=== PATIENT | male | born 1965 | race Caucasian/White ===

== ENCOUNTER 2024-01-13 20:42 | Emergency (ER) | payer SELFPAY ==
[2024-01-13 20:43] VITALS: BMI 36.6
[2024-01-13 21:03] VITALS: BP 165/94
[2024-01-13 21:13] LABS: % Basophils 0.7 % (0-2); % Eosinophils 1.9 % (0-6); % Immature Granulocytes 0.3 % (0-0.5); % Lymphocytes 19.4 % (20.5-51.1); % Monocytes 8.8 % (1.7-9.3); % Neutrophils 68.9 % (42.2-75.2); Absolute Eosinophils 0.1 10^3/uL (0-0.7); Absolute Lymphocytes 1.1 10^3/uL (1.2-3.4); Absolute Monocytes 0.5 10^3/uL (0.1-0.6); Hematocrit 43.4 % (39.0-52.0); Hemoglobin 15.2 g/dL (13.0-18.0); Mean Corpuscular Hgb 32.5 pg (27.0-31.0); Mean Corpuscular Volume 92.9 fL (80.0-94.0); Mean Platelet Volume 9.5 fL (7.4-10.4); Nucleated Red Blood Cells % 0 % (-); Platelet Count 185 10^3/uL (130-400); Red Blood Cell Count 4.67 10^6/uL (4.70-6.10); Red Cell Dist. Width 11.9 % (11.5-14.5); White Blood Cell Count 5.8 10^3/uL (4.8-10.8)
[2024-01-13 21:25] LABS: Amphetamines Negative (Negative); Barbiturates Negative (Negative); Benzodiazepines Negative (Negative); Buprenorphine Negative (Negative); Cocaine Negative (Negative); Marijuana Negative (Negative); Methadone Negative (Negative); Methamphetamines Negative (Negative); Opiates Negative (Negative); Phencyclidine Negative (Negative); Tricyclic Antidepressants Positive (Negative)
[2024-01-13 21:25] LABS: ALT (SGPT) 67 U/L (0-50); AST (SGOT) 50 U/L (17-59); Alkaline Phosphatase 56 U/L (38-126); Blood Urea Nitrogen 20 mg/dl (9-20); Calcium 8.7 mg/dl (8.4-10.2); Carbon Dioxide 24 mmol/L (22-30); Chloride 98 mmol/L (98-107); Estimated Creatinine Clearance 121 ml/min; Glucose 202 mg/dl (70-99); Sodium 132 mmol/L (135-145); Total Bilirubin 1.4 mg/dl (0.2-1.3); Total Protein 6.4 g/dl (6.3-8.2); eGFR > 60.00
[2024-01-13 21:26] LABS: Alcohol None Detected
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
[2024-01-14 03:20] VITALS: BP 128/93
== END 2024-01-14 04:37 ==
LOC: EMR 20:42
PROVIDERS: Physician Assistant Medical; EMERGENCY PHYSICIAN Emergency Medicine; FAMILY PHYSICIAN Family Medicine
DX: F30.9 Manic episode, unspecified (principal); K21.9 Gastro-esophageal reflux disease without esophagitis; Z65.3 Problems related to other legal circumstances
CPT/HCPCS: 99283; 80053; 80306; 82077; 85025

== ENCOUNTER → 2024-07-10 13:04 | Outpatient (REF) | payer OTHER, SELFPAY | LOC: EMG 13:04 | PROVIDERS: ATTENDING PHYSICIAN Specialist; FAMILY PHYSICIAN Family Medicine | DX: M75.42 Impingement syndrome of left shoulder (principal); M25.512 Pain in left shoulder; M25.511 Pain in right shoulder; R20.0 Anesthesia of skin | CPT/HCPCS: 95886; 95911 ==

== ENCOUNTER 2024-09-27 19:26 | Emergency (ER) | payer OTHER, SELFPAY ==
[2024-09-27 19:30] VITALS: BP 149/82
[2024-09-27 20:19] VITALS: BMI 34.0
[2024-09-27 20:23] VITALS: BP 144/78
[2024-09-27 20:47] LABS: Hematocrit 40.1 % (39.0-52.0); Hemoglobin 14.3 g/dL (13.0-18.0); Mean Corp Hgb Conc. 35.7 g/dL (33.0-37.0); Mean Corpuscular Volume 86.1 fL (80.0-94.0); Nucleated Red Blood Cells % 0 % (-); Platelet Count 152 10^3/uL (130-400); Red Cell Dist. Width 12.3 % (11.5-14.5)
[2024-09-27 21:10] LABS: ALT (SGPT) 18 U/L (0-50); AST (SGOT) 16 U/L (17-59); Albumin 4.1 g/dl (3.5-5.0); Alkaline Phosphatase 57 U/L (38-126); Blood Urea Nitrogen 20 mg/dl (9-20); Calcium 9.4 mg/dl (8.4-10.2); Carbon Dioxide 27 mmol/L (22-30); Chloride 106 mmol/L (98-107); Estimated Creatinine Clearance 98 ml/min; Glucose 97 mg/dl (70-99); Potassium 4.5 mmol/L (3.5-5.1); Sodium 137 mmol/L (135-145); Total Protein 6.4 g/dl (6.3-8.2); eGFR > 60.00
[2024-09-27 21:27] LABS: Urine Character Clear (Clear)
[2024-09-27 21:35] VITALS: BP 158/101
[2024-09-27 21:45] LABS: D-Dimer < 0.27 ug/mlFEU (0.00-0.50)
[2024-09-27 21:50] LABS: Troponin I < 0.012 ng/ml
[2024-09-27 21:52] LABS: Urine Red Blood Cell 0-2 /HPF (0-2); Urine Squamous Cell 26-30 /LPF (Few); Urine White Cell 0-2 /HPF (0-5)
[2024-09-27 22:30] VITALS: BP 127/72
--- NOTE | 2024-09-27 22:47 | ED.GENMED ---
History of Present Illness
General
Chief Complaint: Dizziness
Time Seen by Provider: 09/27/24 20:08
History of Present Illness
History of Present Illness:
59-year-old male with history of bipolar disorder, hypertension presenting to the emergency department for concern of a syncopal episode. Patient reports 2 days ago, after traveling home from [place], he was walking in the kitchen and
suddenly dropped to the ground. Reports that he may have felt slightly lightheaded for about 1 to seconds prior to the incident, otherwise had no significant prodromal symptoms. He also notes that he does not think that he fully passed out. He
was able to almost immediately get up and walk. was in the kitchen, however her back was turned to him. No report of any diffuse body shaking or postictal type of period. Patient does note that he is on a lot of sedating medications
including gabapentin and Klonopin, however has been on these medications for some time. Notes some generalized fatigue with the medications. Denies any known cardiac history. Denies any present chest pain or difficulty breathing. He talked to
his primary care doctor today. Denies any fever or recent illness. Denies additional acute medical complaints
Past History
Social History
Tobacco: Non-smoker
Alcohol: Occasional
Drug: None
Personal:
Living: with family
Employment: Employed
Phy Exam
Physical Exam
Physical Exam:
General: Well-appearing, no clinical signs of dehydration, nontoxic and in no acute distress
HEENT: protecting airway
Neck: appears supple, no midline tenderness
CV: Normal heart rate, regular rhythm
Resp: No accessory muscle use, no increased work of breathing, lungs clear to auscultation bilaterally
Abd: Soft and non-distended, no tenderness to palpation
Extremities: No deformities, no swelling
Neuro: alert, no focal neurologic deficit
: deferred
Rectal: deferred
Psych: Normal affect
Skin: Intact
Course
Orders/Labs/Results
Orders:
Orders
08/07/25 19:33
Electrocardiogram (*1) Urgent
Reason for Study: Syncope
EKG- Treatment ONCE
09/27/24 20:34
CMP [Comprehensive Metabolic Panel] Urgent
Complete Blood Count/With Diff Urgent
09/27/24 21:09
CT Head W/o Iv Contrast Urgent
Comment:
Reason For Exam: syncope and collapse
09/27/24 21:16
D-Dimer Urgent
Troponin I Urgent
Urinalysis Reflex To Culture Urgent
Date Specimen was Collected: 09/27/24
Time Specimen was Collected: 21:15
Urine Microscopic Reflex Cult Urgent
Abnormal Lab Results
09/27/24 09/27/24
20:34 21:16
WBC 4.1 L 10^3/uL
(4.8-10.8)
RBC 4.66 L 10^6/uL
(4.70-6.10)
Monocytes % 13.3 H %
(1.7-9.3)
Total Bilirubin 1.4 H mg/dl
(0.2-1.3)
AST 16 L U/L
(17-59)
Urine Urobilinogen 2+ A
(Neg - 1+)
Urine Bacteria (Reflex) Few A
(Negative)
Urine Albumin (Reflex) 1+ A
(Neg - Trace)
09/27/24 20:34
09/27/24 20:34
Vital Signs
Initial and Last Documented VS:
Initial Vital Signs
Temp Pulse Resp BP Pulse Ox
98 F 59 16 149/82 96
09/27/24 19:30 09/27/24 19:30 09/27/24 19:30 09/27/24 19:30 09/27/24 19:30
Last Documented Vital Signs
Temp Pulse Resp BP Pulse Ox
98.1 F 58 17 127/72 98
09/27/24 20:23 09/27/24 22:30 09/27/24 22:30 09/27/24 22:30 09/27/24 22:30
MDM/Problems Addressed
MDM/Problems Addressed:
59-year-old male with history of bipolar disorder and hypertension presenting for a syncopal episode. Vital signs on arrival are significant for mild hypertension, however resolved without intervention.
On exam patient is resting comfortably, no acute distress or discomfort. Notes that he feels generally fatigued, however otherwise asymptomatic. Syncopal episode was 2 days ago. Patient symptoms are concerning in the sense that he denies any
significant prodromal symptoms. However, denies any full loss of consciousness, so unclear if he had a complete syncopal episode. No report of any shaking, without concern for seizure, again no postictal period or period of confusion. EKG
obtained on arrival, nonischemic, no arrhythmia. Sudden arrhythmia and collapse is a consideration, however lower suspicion. Does note recent travel, had about a 7-hour car ride prior to onset of symptoms. No lower extremity edema. No PE risk
factors. Will screen with D-dimer. Will also send troponin. Will obtain electrolyte panel to ensure no electrolyte derangement. Will check blood counts. Unclear if patient struck his head. Will screen with CT brain imaging.
22:45- CT head without acute abnormality. Labs are unremarkable. Negative dimer and troponin. At this time again unclear etiology of patient's preceding event. Remains hemodynamically stable and feel stable for discharge, however did explain
that patient should follow-up closely with a director medical surgical to completely rule out acute cardiac event such as an arrhythmia. Strict return precautions were communicated to patient who verbalized understanding
*Pulse Oximetry
SaO2: 98
Oxygen Mode of Delivery: Room air
Patient hypoxic: no
*EKG
Interpreted by ED Provider?: Yes
EKG Intrepretation Date: 09/27/24
EKG Intrepretation Time: 22:56
Interpretation: normal
Comparison EKG: no changes (06/11/21)
Heart Rate: 62
Rate: normal
Rhythm: sinus
[place]: normal axis
Interval: normal interval
QRS Pattern: normal QRS
Ischemia: no ischemia
*Critical Care Note
Total Time (30-74mins, 75-104mins- exclusive of procedures): Not Applicable
ED Attending Note
-
Portions of this chart may have been created with voice recognition software.� Occasional wrong word or��sound alike� substitutions may have occurred due to the inherent limitations of voice recognition software.
Discharge Plan
Departure
Patient Disposition: Home (Routine Discharge)
Date of Disposition: 09/27/24
Time of Disposition: 22:39
Patient with high blood pressure during this ER visit?: No
Condition: Good
Discharge Problem:
Syncope and collapse
Instructions: Syncope (fainting) - Discharge instructions
Referrals:
Juan Antonio Sanchez MD [Active, Cardiology]
Jo-Ann Nj MD [Family Provider, Family Practice]
Activity Restrictions/Additional Instructions:
You were seen in the emergency department for episode of syncope, or passing out
You were found to have reassuring vital signs, laboratory analysis, CT imaging of your brain, and EKG. However, we recommend that you follow-up with a director medical surgical for additional testing.
Please follow-up closely with your primary care physician.
Return to the emergency department for any worsening of your symptoms, or any development of chest pain, difficulty breathing, abdominal pain with persistent vomiting and inability to tolerate food or liquid by mouth (concern for dehydration),
weakness, headache or confusion, fever greater than 100.4, or any additional symptoms that are concerning to you.
Thank you for choosing [facility].
Interventions
Interventions:
*Risk Screen - Suicide Last Done: 09/27/24 19:35
*General Assessment Last Done: 09/27/24 20:24
*Neglect/Abuse Screening Last Done: 09/27/24 19:35
*ED- Fall Risk Assessment Last Done: 09/27/24 20:24
*ED COVID-19 Vaccine History Last Done: 09/27/24 20:24
ED- Neurological Assessment Last Done: 09/27/24 20:36
ED- Cardiac Assessment Last Done: 09/27/24 20:36
ED Swallowing Screen Last Done: 09/27/24 21:16
Discharge Date and Time
Print Language: MAORI
== END 2024-09-27 22:59 | disposition home or self-care (01) ==
LOC: EMR 19:26
PROVIDERS: EMERGENCY PHYSICIAN Student in an Organized Health Care Education/Training Program; FAMILY PHYSICIAN Family Medicine
DX: R55 Syncope and collapse (principal); F31.9 Bipolar disorder, unspecified; I10 Essential (primary) hypertension; Z79.899 Other long term (current) drug therapy
CPT/HCPCS: 99285; 70450; 80053; 81003; 81015; 84484; 85025; 85379; 93005

== ENCOUNTER 2024-12-25 01:34 | Emergency (ER) | payer OTHER, SELFPAY ==
[2024-12-25 01:35] VITALS: BP 130/80
--- NOTE | 2024-12-25 02:04 | ED.GENMED ---
History of Present Illness
General
Chief Complaint: Post Operative Problem(s)
Source: patient
Time Seen by Provider: 12/25/24 01:53
History of Present Illness
History of Present Illness:
59-year-old male presents to the emergency room for evaluation after a surgical incision opened up. Patient is postop day 10 after having ulnar nerve release surgery of his left arm. The incision in his left elbow evidently 'opened up' when he
rolled over in bed. The sutures had been removed about 4 days ago. Surgery was performed by Dr. Jimenez. Patient is right-hand dominant. No fever, chills or any other systemic complaints.
Past History
Social History
Tobacco: Non-smoker
Alcohol: Occasional
Drug: None
Personal:
Living: with family
Employment: Employed
Phy Exam
Physical Exam
Physical Exam:
General: Awake, Alert, Oriented X3. No acute distress.
Vitals: unremarkable
Head: Atraumatic
Eyes: Pupils equal, EOMI
Throat: Airway intact, no exudates
Neck: Trachea midline
Neuro: Nonfocal
Skin: Warm, dry, no rash
Extremities: pulses equal b/l, no edema. Approximately 1-1/2 2 cm wound noted on the ulnar aspect of the upper arm near the elbow. Wound edges are clear. No purulent discharge.
Course
Orders/Labs/Results
Orders:
Orders
12/25/24 02:16
Cephalexin Monohydrate [Keflex] 500 mg PO NOW STA
Vital Signs
Initial and Last Documented VS:
Initial Vital Signs
Temp Pulse Resp BP Pulse Ox
97.4 F 58 20 130/80 98
12/25/24 01:35 12/25/24 01:35 12/25/24 01:35 12/25/24 01:35 12/25/24 01:35
Last Documented Vital Signs
Temp Pulse Resp BP Pulse Ox
97.4 F 58 20 130/80 98
12/25/24 01:35 12/25/24 01:35 12/25/24 01:35 12/25/24 01:35 12/25/24 02:05
MDM/Problems Addressed
Differential Diagnosis Includes:
Wound infection, ride mechanic wound dehiscence
MDM/Problems Addressed:
Given the incision is 10 days old I do not believe it is amenable to primary closure here in the emergency room. Will approximate wound edges with Steri-Strips and have him follow-up with Dr. Jimenez in the office. Will cover with Keflex for 5
days.
*Pulse Oximetry
SaO2: 98
Oxygen Mode of Delivery: Room air
Patient hypoxic: no
*Critical Care Note
Total Time (30-74mins, 75-104mins- exclusive of procedures): Not Applicable
ED Attending Note
-
Portions of this chart may have been created with voice recognition software.� Occasional wrong word or��sound alike� substitutions may have occurred due to the inherent limitations of voice recognition software.
Discharge Plan
Departure
Patient Disposition: Home (Routine Discharge)
Date of Disposition: 12/25/24
Time of Disposition: 02:16
Patient with high blood pressure during this ER visit?: No
Condition: Good
Discharge Problem:
Dehiscence of wound
Instructions: Wound Care (DC), BLOOD PRESSURE
Prescriptions:
New
cephalexin 500 mg capsule
500 mg PO QID Qty: 20 0RF
No Action
gabapentin 600 mg Tablet
1,200 mg PO BID
clonazepam [Klonopin] 0.5 mg Tablet
1.5 mg PO BID
pantoprazole 40 mg Tablet,Delayed Release (Dr/Ec)
40 mg PO BID
diphenhydramine HCl [Benadryl] 25 mg Capsule
20 mg PO HS
vitamin B complex [Vitamin B-50 Complex] Tablet
1 tab PO DAILY
lamotrigine 100 mg Tablet
100 mg PO BID
escitalopram oxalate [Lexapro] 10 mg Tablet
10 mg PO DAILY
Referrals:
Yakov Jimenez MD [Active, Orthopedics]
Interventions
Interventions:
*Risk Screen - Suicide Last Done: 12/25/24 01:35
*General Assessment Last Done: 12/25/24 01:40
*Neglect/Abuse Screening Last Done: 12/25/24 01:35
*ED- Fall Risk Assessment Last Done: 12/25/24 01:40
*ED COVID-19 Vaccine History Last Done: 12/25/24 01:40
*ED Influenza Vaccine History Last Done: 12/25/24 01:40
*Nursing Disposition Last Done: 12/25/24 02:35
ED-Skin Assessment Last Done: 12/25/24 01:40
Discharge Date and Time
Discharge Date/Time: 12/25/24 02:35
Print Language: SETSWANA
[2024-12-25] MEDS: KEFLEX 500 MG PO (02:32)
== END 2024-12-25 02:35 | disposition home or self-care (01) ==
LOC: EMR 01:34
PROVIDERS: EMERGENCY PHYSICIAN Emergency Medicine; FAMILY PHYSICIAN Family Medicine
DX: T81.31XA Disruption of external operation (surgical) wound, not elsewhere classified, initial encounter (principal)
CPT/HCPCS: 99283

== ENCOUNTER 2024-12-30 09:22 | Emergency (ER) | payer OTHER, SELFPAY ==
[2024-12-30 09:27] VITALS: BP 171/98
--- NOTE | 2024-12-30 10:09 | ED.GENMED ---
History of Present Illness
General
Chief Complaint: Swelling
Time Seen by Provider: 12/30/24 09:46
History of Present Illness
History of Present Illness:
59-year-old male presents to the emergency department for evaluation of left arm swelling that began upon awakening this morning. He is approximately 2 weeks status post ulnar nerve release surgery performed by Dr. Jimenez with [facility] orthopedics.
He did have a postop complication with wound dehiscence 5 days ago and is currently using Steri-Strips for definitive closure. He had mild swelling intermittently after the surgery but not as significant as this. He reports stiffness of the left
hand and moderate pain and paresthesias of the left forearm and hand as well. Denies any new trauma. No fevers or chills
Past History
Social History
Tobacco: Non-smoker
Alcohol: Occasional
Drug: None
Personal:
Living: with family
Employment: Employed
Review of Systems
Review of Systems
Allergies reviewed?: Yes
All Other Systems: ROS reviewed and negative except as documented in HPI and ROS
Phy Exam
Physical Exam
Physical Exam:
GEN: Well appearing, NAD, WDWN
HEENT: Oral mucosa moist, no scleral icterus
Cardiac: Regular rate
Lung: No respiratory distress, no tachypnea
MSK: Moderate diffuse swelling of the left hand and forearm from the proximal forearm through the fingers the surgical wound is well-approximated with Steri-Strips and there is mild serosanguineous discharge, no overt erythema, grossly nontender to
palpation, radial pulse strong
Skin: Good color, no pallor or jaundice, no rashes
Neuro: AO x3, moves all extremities freely
Psych: Calm, cooperative
Scores
Heart Failure Risk
Heart Failure Risk Score: Not Applicable
Course
Vital Signs
Initial and Last Documented VS:
Initial Vital Signs
Temp Pulse Resp BP Pulse Ox
97.9 F 61 16 171/98 96
12/30/24 09:27 12/30/24 09:27 12/30/24 09:27 12/30/24 09:27 12/30/24 09:27
Last Documented Vital Signs
Temp Pulse Resp BP Pulse Ox
97.9 F 61 16 171/98 96
12/30/24 09:27 12/30/24 09:27 12/30/24 09:27 12/30/24 09:27 12/30/24 10:11
MDM/Problems Addressed
MDM/Problems Addressed:
Swelling is most likely due to excessive venous constriction from the Kike wrapping on overnight. The patient has limited range of motion of the digits however no clear neurologic dysfunction, sensation intact and has the ability to move the
extremity in all directions. He has an appointment with his orthopedist in 2 days, recommend against further Kike wrap use
*Pulse Oximetry
SaO2: 96
Oxygen Mode of Delivery: Room air
Patient hypoxic: no
*Critical Care Note
Total Time (30-74mins, 75-104mins- exclusive of procedures): Not Applicable
ED Attending Note
-
Portions of this chart may have been created with voice recognition software.� Occasional wrong word or��sound alike� substitutions may have occurred due to the inherent limitations of voice recognition software.
Discharge Plan
Departure
Patient Disposition: Home (Routine Discharge)
Date of Disposition: 12/30/24
Time of Disposition: 10:35
Patient with high blood pressure during this ER visit?: No
Discharge Problem:
Left arm swelling
Instructions: Dependent Edema (DC)
Prescriptions:
No Action
gabapentin 600 mg Tablet
1,200 mg PO BID
clonazepam [Klonopin] 0.5 mg Tablet
1.5 mg PO BID
pantoprazole 40 mg Tablet,Delayed Release (Dr/Ec)
40 mg PO BID
diphenhydramine HCl [Benadryl] 25 mg Capsule
20 mg PO HS
vitamin B complex [Vitamin B-50 Complex] Tablet
1 tab PO DAILY
lamotrigine 100 mg Tablet
100 mg PO BID
escitalopram oxalate [Lexapro] 10 mg Tablet
10 mg PO DAILY
cephalexin 500 mg capsule
500 mg PO QID Qty: 20 0RF
Referrals:
Jo-Ann Nj MD [Family Provider, Family Practice]
Activity Restrictions/Additional Instructions:
DO NOT USE KIKE WRAP
Ice and elevate the arm when possible
Follow up wtih Dr Jimenez as planned
Interventions
Interventions:
*Risk Screen - Suicide Last Done: 12/30/24 09:27
*General Assessment Last Done: 12/30/24 09:55
*Neglect/Abuse Screening Last Done: 12/30/24 09:27
*ED- Fall Risk Assessment Last Done: 12/30/24 09:55
*ED COVID-19 Vaccine History Last Done: 12/30/24 09:55
*ED Influenza Vaccine History Last Done: 12/30/24 09:55
*Nursing Disposition Last Done: 12/30/24 10:50
ED- Cardiac Assessment Last Done: 12/30/24 09:55
ED- Pulmonary Assessment Last Done: 12/30/24 09:55
ED-Skin Assessment Last Done: 12/30/24 09:55
Discharge Date and Time
Discharge Date/Time: 12/30/24 10:50
Print Language: IRANIAN
== END 2024-12-30 10:50 | disposition home or self-care (01) ==
LOC: EMR 09:22
PROVIDERS: EMERGENCY PHYSICIAN Emergency Medicine; FAMILY PHYSICIAN Family Medicine
DX: M79.89 Other specified soft tissue disorders (principal); Z48.01 Encounter for change or removal of surgical wound dressing
CPT/HCPCS: 99282